=== PATIENT | female | born 1965 | race Caucasian/White ===

== ENCOUNTER 2016-04-28 11:48 | Outpatient (CLI) | payer OTHER ==
--- NOTE | 2016-04-28 15:46 | Diagnostic Imaging Report ---
[facility] [address] [facility].[address] [address] Report Submission Date: Apr 28, 2016 1:38:25 PM HOME APPRAISER Patient Study Name: ELIZABETH ERWIN Date: Apr 28, 2016 12:44:49 PM HOME APPRAISER Modality Type: CR Gender: F Description: CHEST : 65 Institution: [facility] Physician: VASHTI CASTANON Chest -two views CLINICAL HISTORY: Preoperative evaluation. Smoking history. FINDINGS: Examination of the chest in PA and lateral views with no prior film for comparison demonstrates the lungs to be clear. Cardiac silhouette is prominent. Bony thorax is intact. There are mild spondylitic changes in the thoracic vertebrae. IMPRESSION: No active disease. Left ventricular prominence. Electronically signed on Apr 28, 2016 1:38:25 PM HOME APPRAISER by: Augustin WATSON
== END 2016-04-28 11:50 ==
LOC: RAD 11:48
PROVIDERS: ATTEND Nurse Practitioner Family
DX: F17.200 Nicotine dependence, unspecified, uncomplicated (principal); Z01.818 Encounter for other preprocedural examination
CPT/HCPCS: 71020

== ENCOUNTER 2017-03-18 15:11 | Emergency (ER) | payer MEDICAID, OTHER ==
--- NOTE | 2017-03-18 15:39 | ED Physician Documentation ---
General Adult - HISTORIAN Historian: patient - HPI Stated Complaint: cough, fever Chief Complaint: General Adult Onset: days ago (6) Timing: still present Severity: moderate Further Comments: yes (Pt is a 51 yo female with cough, wheezing x 6 days. Pt had a fever of 103 five days ago. Pt is sob with any exertion. Pt has no hx heart dz or COPD, though she has a long smoking hx. Pt has not been able to afford asthma inhaler meds. Pt had back surgery in May 2016 and hasn't felt completely well since.) - ROS CONST: chills, other (malaise) EYES/ENT: sore throat, nasal congestion CVS/RESP: shortness of breath, cough GI/: none MS/SKIN/LYMPH: none - PAST HX Past History: asthma, other (hx pneumonia) Surgeries/Procedures: cholecystectomy, other (BTL, ortho surgery, back surgery, ulnar nerve repair) Allergies/Adverse Reactions: Allergies Allergy/AdvReac Type Severity Reaction Status Date / Time codeine [Codeine] Allergy Verified 03/18/17 15:34 Home Medications: Ambulatory Orders Medication Instructions Recorded NK [NK] 03/18/17 - SOCIAL HX Smoking History: cigarettes - FAMILY HX Family History: No - VITAL SIGNS Vital Signs: Vital Signs Temp Pulse Resp BP Pulse Ox 98.3 F 103 H 24 131/69 98 03/18/17 15:26 03/18/17 15:26 03/18/17 15:26 03/18/17 15:26 03/18/17 15:26 - REVIEWED ASSESSMENTS Nursing Assessment Reviewed: Yes Vitals Reviewed: Yes Progress - Progress Progress: Duoneb HFN x 1 in ER Solu-medrol 125 mg IV Levaquin 500 mg po x 1 Rx Levaquin 500 mg. Take one daily for 10 days. Rx Albuterol HFN (2.5 mg/3ml). One nebulizer treatment every 4 to 6 hrs as needed for wheezing. Rx Prednisone 50 mg. Take one daily for 4 days. Start on 03-19-17. Rx Tessalon Perles 100 mg. Take one every 8 hrs as needed for cough. - EKG/XRAY/CT XRAY: chest (Prominent hilar and lower lobe markings consistent with asthma or bronchitis ) General Adult Physical Exam - PHYSICAL EXAM GENERAL APPEARANCE: moderate distress EENT: pharynx normal NECK: normal inspection, supple RESPIRATORY: wheezes, rhonchi CVS: reg rate & rhythm, heart sounds normal BACK: normal inspection SKIN: warm/dry, normal color EXTREMITIES: non-tender, normal range of motion, no evidence of injury NEURO: oriented X3, motor nml, sensation nml Discharge Clincal Impression: Asthmatic bronchitis Qualifiers: Asthma severity: unspecified severity Asthma persistence: unspecified Asthma complication type: with acute exacerbation Qualified Code(s): J45.901 - Unspecified asthma with (acute) exacerbation Referrals: Alcira Lewis PRN [Primary Care Provider] - Condition: Stable Disposition: 01 HOME, SELF-CARE Decision to Admit: NO Decision Time: 16:50
[2017-03-18 16:08] LABS: BASOPHILS % 0.5 (0.0-1.5); EOSINOPHILS % 4.2 % (0.0-6.8); MEAN CORPUSCULAR HEMOGLOBIN 30.4 pg (28.0-34.0); MEAN CORPUSCULAR VOLUME 92.4 fl (80.0-100.0); MONOCYTES % 2.6 % (0.0-11.0); NEUTROPHILS # 6.2 # k/uL (1.4-7.7)
[2017-03-18] MEDS ORDERED: IPRATROPIUM/ALBUTEROL SULFATE 3 ML AMPUL.NEB NEB ONE (16:12)
[2017-03-18] MEDS ORDERED: methylPREDNISolone SOD SUCC 125 MG/2 ML VIAL IVP ONE (16:21)
[2017-03-18 16:30] LABS: eGFR (African) > 60; eGFR (Non-African) > 60
[2017-03-18] MEDS ORDERED: LEVOFLOXACIN 500 MG TABLET PO ONE (16:37)
[2017-03-18 16:56] VITALS: BP 128/71
--- NOTE | 2017-03-19 07:50 | Diagnostic Imaging Report ---
[facility] [address] [facility].[address] [address] Report Submission Date: Mar 18, 2017 4:18:50 PM CERTIFIED NOVELL ENGINEER Patient Study Name: ELIZABETH ERWIN Date: Mar 18, 2017 3:59:46 PM CERTIFIED NOVELL ENGINEER Modality Type: CR Gender: F Description: CHEST : 65 Institution: [facility] Physician: ABDIRASHID ROBLES Pa and lateral chest Clinical history :short of breath and fever Comparison: April 28, 2016 Technique pa and lateral upright Findings: The prominent jonathan and accentuated lower lobe markings are consistent with of asthma or bronchitis. No acute infiltrate is seen. There is no pleural effusion. Thoracic spondylosis is present.. I see no hilar or mediastinal mass. Impression: Prominent hilar and lower lobe markings consistent with asthma or bronchitis No acute infiltrate and no change from the previous chest radiograph Electronically signed on Mar 18, 2017 4:18:50 PM CERTIFIED NOVELL ENGINEER by: Davin WATSON
== END 2017-03-18 16:55 | disposition home or self-care (01) ==
LOC: ED 15:11
DX: J45.901 Unspecified asthma with (acute) exacerbation (principal); F17.210 Nicotine dependence, cigarettes, uncomplicated
CPT/HCPCS: 71020; 80053; 83880; 85025; 87040; J2930; 94640; 96374; 99283; 99284; S1016

== ENCOUNTER 2017-12-21 18:34 | Emergency (ER) | payer MEDICAID, OTHER ==
--- NOTE | 2017-12-21 18:59 | ED Physician Documentation ---
General Adult - HISTORIAN Historian: patient - HPI Stated Complaint: sob Chief Complaint: General Adult Onset: hours Timing: still present Severity: moderate Further Comments: yes (Pt is a 52 yo female with sob. Pt has hx asthma and presents with wheezing. Pt has had some sob. No chest pain, diaphoresis or fever. Pt had a family tragedy this week when her 17 yo nephew in an MVC.) - ROS CONST: weakness EYES/ENT: none CVS/RESP: shortness of breath, cough. denies: chest pain GI/: none MS/SKIN/LYMPH: none NEURO/PSYCH: other (bereavment) - PAST HX Past History: asthma Allergies/Adverse Reactions: Allergies Allergy/AdvReac Type Severity Reaction Status Date / Time codeine [Codeine] Allergy Verified 12/21/17 18:57 Home Medications: Ambulatory Orders Medication Instructions Recorded Cyclobenzaprine HCl 10 mg PO QID 12/21/17 Gabapentin 300 mg pe PO TID 12/21/17 - SOCIAL HX Smoking History: cigarettes - FAMILY HX Family History: No - VITAL SIGNS Vital Signs: Vital Signs Temp Pulse Resp BP Pulse Ox 128/71 03/18/17 16:55 - REVIEWED ASSESSMENTS Nursing Assessment Reviewed: Yes Vitals Reviewed: Yes Progress - Progress Progress: CXR: PA and lateral views of the chest demonstrates a normal cardiac and mediastinal silhouette. Elevated right hemidiaphragm. Bihilar parenchymal haziness. No blunting of the costophrenic margins. Osseous structures are appropriate for age. Impression: Bihilar parenchymal haziness. No effusion. Duoneb HFN x 1 Pulmicort HFN x 1 Albuterol HFN x 1 Solu-medrol 125 mg IV Azithromycin 500 mg po x 1 Asthma, Possible Early Pneumonia Pt has albuterol nebs at home d/c instructions: Rx Azithromycin 250 mg. Take one daily for 5 days. Rx Prednisone 50 mg. Take one daily for 5 days. Rx Albuterol (90 mcg/spray). 2 puffs every 4 to 6 hours as needed for wheezing. Rx Tessalon Perles 100 mg. Take one every 8 hours as needed for cough. - EKG/XRAY/CT EKG: NSR (HR=84; low voltage; normal axis; normal ND interval.) General Adult Physical Exam - PHYSICAL EXAM GENERAL APPEARANCE: moderate distress EENT: pharynx normal NECK: normal inspection, supple RESPIRATORY: wheezes CVS: reg rate & rhythm, heart sounds normal, equal pulses ABDOMEN: soft, no organomegaly, normal bowel sounds BACK: normal inspection, no CVA tenderness SKIN: warm/dry, normal color EXTREMITIES: non-tender, normal range of motion, no evidence of injury NEURO: oriented X3, motor nml, sensation nml Discharge Clincal Impression: Asthma, possible early pneumonia Referrals: Alcira Lweis, PRN [Primary Care Provider] - Condition: Stable Disposition: 01 HOME, SELF-CARE Decision to Admit: NO Decision Time: 21:40
[2017-12-21] MEDS: IPRATROPIUM/ALBUTEROL SULFATE 3 ML AMPUL.NEB NEB ONE (19:45)
--- NOTE | 2017-12-21 20:33 | Diagnostic Imaging Report ---
ABDIRASHID ROBLES [facility] [address] [facility] [address] [place] [address]. [id number] Report Submission Date: Dec 21, 2017 8:19:15 PM CDT Patient Study Name: ELIZABETH ERWIN Date: Dec 21, 2017 7:32:36 PM CDT Modality Type: DX Gender: F Description: CHEST : 65 Institution: [facility] Physician: ABDIRASHID ROBLES Examination: PA and lateral chest. History: Evaluate lung sanchez. COUGH AND SHORT OF BREATH X 2-3 DAYS. RECENT 1/2 PPD SMOKER RESTARTED AFTER NON-SMOKER X 8 MONTHS. (Hx) Comparison exam: None provided. Findings: PA and lateral views of the chest demonstrates a normal cardiac and mediastinal silhouette. Elevated right hemidiaphragm. Bihilar parenchymal haziness. No blunting of the costophrenic margins. Osseous structures are appropriate for age. Impression: Bihilar parenchymal haziness. No effusion. Electronically signed on Dec 21, 2017 8:19:15 PM CDT by: Robert WATSON
[2017-12-21] MEDS: BUDESONIDE 0.5MG/2ML AMPUL.NEB NEB SCH (20:35)
[2017-12-21 20:52] LABS: eGFR (Non-African) > 60
[2017-12-21] MEDS: ALBUTEROL SULFATE 2.5 MG/3 ML AMPUL.NEB NEB ONE (21:02)
[2017-12-21] MEDS: AZITHROMYCIN 250 MG TABLET PO ONE (21:16)
[2017-12-21] MEDS: methylPREDNISolone SOD SUCC 125 MG/2 ML VIAL IV ONE (21:47)
[2017-12-21 21:51] LABS: BASO % 0.6 % (0.0-1.5); LYMPH ABS # 2.62 thou/uL (0.60-4.00); MCH. 29.9 pg (28.0-34.0); MCV 92.4 fL (80.0-100.0); MONOCYTE % 4.2 % (0.0-11.0); MONOCYTE ABS # 0.34 thou/uL (0.00-0.90); PLATELET COUNT 317 thou/uL (130-400)
[2017-12-21 22:35] VITALS: BP 111/72
[2017-12-21] MEDS: BUDESONIDE 0.5MG/2ML AMPUL.NEB NEB ONE (23:52)
== END 2017-12-21 22:05 | disposition home or self-care (01) ==
LOC: ED 18:34
DX: J45.909 Unspecified asthma, uncomplicated (principal)
CPT/HCPCS: 71046; 80053; 82550; 82553; 83880; 84484; 85025; 85379; 87040; 93005; 94640; 96374; 99285; J2930; J7626; S1016